=== PATIENT | male | born 1980 | race Caucasian/White ===

== ENCOUNTER 2018-04-02 00:36 | Observation (INO) | payer BC ==
[~2018-04-02] VITALS: Ht 182.9 cm; Wt 68.9 kg
[~2018-04-02 00:36] MED LIST: REGLAN10 MG PO
[2018-04-02 01:34] LABS: HEMATOCRIT 40.2 % (38.0-50.0); HEMOGLOBIN 13.8 G/DL (12.5-16.6); MCH 28.8 PG (29.0-34.0); MCHC 34.3 G/DL (30.0-36.0); MCV 83.8 FL (86-99); PLATELET COUNT 164 K/uL (156-360); RBC DIS.WIDTH-CV 12.3 % (11.8-14.6); RBC DIS.WIDTH-SD 37.2 % (39-53); WHITE BLOOD COUNT 5.3 K/uL (4.1-10.2)
[2018-04-02 01:38] LABS: CHLORIDE 103 mEq/L (99-109); POTASSIUM 3.9 mEq/L (3.7-5.4); SODIUM 140 mEq/L (136-147)
[2018-04-02 01:40] LABS: GLUCOSE 91 mg/dL (70-99)
[2018-04-02 01:44] LABS: CREATININE 1.1 mg/dL (0.6-1.3); GFR ESTIMATE (CALCULATED) > 59 mL/min/ (58.99-99999)
[2018-04-02 01:45] LABS: UREA NITROGEN (BUN) 9 mg/dL (9-23)
[2018-04-02 01:52] LABS: TROP-I INTERPRETATION NEGATIVE; TROPONIN-I < 0.01 ng/mL (0.0-0.30)
[2018-04-02 02:22] LABS: D-DIMER ELISA < 150.00 ng/mLDDU (<230)
[2018-04-02 04:01] LABS: TROP-I INTERPRETATION NEGATIVE; TROPONIN-I < 0.01 ng/mL (0.0-0.30)
[2018-04-02 05:50] VITALS: BP 120/76
[2018-04-02 07:53] VITALS: BP 118/71
[2018-04-02 10:52] LABS: TROP-I INTERPRETATION NEGATIVE; TROPONIN-I < 0.01 ng/mL (0.0-0.30)
[2018-04-02 11:45] VITALS: BP 116/56
[2018-04-02 13:57] LABS: TROP-I INTERPRETATION NEGATIVE; TROPONIN-I < 0.01 ng/mL (0.0-0.30)
[2018-04-02 15:54] VITALS: BP 100/64
[2018-04-02] MEDS ORDERED: ASPIR-LOW81 MG PO (17:02)
[2018-04-02] MEDS ORDERED: IBUPROFEN400 MG PO (17:03)
== END 2018-04-02 18:25 | disposition home or self-care (01) ==
LOC: EME 00:36 → EDOF 04:52 → 4SOUTH 05:43
PROVIDERS: Emergency Medicine; Internal Medicine; Physician Assistant
DX: R07.9 Chest pain, unspecified (principal); R94.31 Abnormal electrocardiogram [ECG] [EKG]; Z79.82 Long term (current) use of aspirin; R06.09 Other forms of dyspnea; Z82.49 Family history of ischemic heart disease and other diseases of the circulatory system; Z82.3 Family history of stroke
CPT/HCPCS: 71046; 80048; 84484; 85027; 85379; 93005; 99281; 99284; G0378; J1644